=== PATIENT | female | born 1980 | race Hispanic/Latino ===

== ENCOUNTER 2023-08-13 17:42 | Emergency (ER) | payer MEDICAID ==
[~2023-08-13] VITALS: Ht 152.4 cm; Wt 68.0 kg
[2023-08-13] MEDS: IBUPROFEN 600 MG TABLET PO ONE (18:26)
[2023-08-13] MEDS: ONDANSETRON ODT 4MG TAB SL ONE (18:27)
[2023-08-13] MEDS: HYDROCODONE/ACETAMINOPHEN 5/325 MG TAB PO ONE (18:27)
[2023-08-13] MEDS ORDERED: IBUP-2070 PO (20:06)
[2023-08-13] MEDS ORDERED: ACET-2079 PO (20:06)
[2023-08-13 20:13] VITALS: BP 122/72; PULSE 78; RESP 18; O2SAT 98
== END 2023-08-13 20:18 | disposition home or self-care (01) ==
LOC: EDH 17:42
DX: S82.492A Other fracture of shaft of left fibula, initial encounter for closed fracture (principal); S82.292A Other fracture of shaft of left tibia, initial encounter for closed fracture; Z98.890 Other specified postprocedural states; W18.39XA Other fall on same level, initial encounter; Y93.89 Activity, other specified; Y92.89 Other specified places as the place of occurrence of the external cause; Y99.8 Other external cause status
CPT/HCPCS: 29515; 72170; 73551; 73562; 73590; 73610

== ENCOUNTER → 2025-02-08 | Outpatient (CLI) | payer MEDICARE ==
[~2025-02-08] MED LIST: IOHEXOL 350 MG/ML 100ML INFUS..BTL IV ONE
--- NOTE | 2025-02-08 14:45 | HMCIMG ---
INDICATION: Pain localized to other parts of lower abdomen. COMPARISON: None. TECHNIQUE: After obtaining the patient's consent, CT images of the abdomen were obtained with non-ionic intravenous contrast material. Multiplanar image reconstruction was performed. In addition, Multiplanar MIP reconstructions were created and interpreted to optimize visualization of vascular anatomy. Numerous low-radiation dose strategies were employed including AEC (Automatic Exposure Control) and individualized BMI-based low dose scan protocols. The exam was performed on a CT scanner that is compliant with the NEMA XR-29 Smart Dose Standard. DICOM Radiation Dose Structured Reporting capability and Dose Check Standard are also features of this scanner. The study was also obtained with oral contrast. RADIATION DOSE ESTIMATE: CTDIvol (mGy): 37.40 \ DLP (mGy-cm): 1828.80 FINDINGS: ABDOMINAL AORTA: Normal. No aneurysm or dissection. RENAL/VISCERAL: Normal. No significant renal or mesenteric arterial stenosis. ILIAC ARTERIES: Normal. No significant stenosis or aneurysm. OTHER VASCULAR: Negative. LIVER: Normal. No enlargement or significant focal lesion. Portal vein is patent. BILIARY: Normal. No visible dilatation or calcification. The gallbladder is surgically absent. PANCREAS: Normal. No lesion, fluid collection, ductal dilatation, or acute inflammation. SPLEEN: Normal. No enlargement or focal lesion. KIDNEYS: Normal. No mass, obstruction, or nephrolithiasis. ADRENALS: Normal. No mass or enlargement. RETROPERITONEUM: Normal. No mass or adenopathy. BOWEL/MESENTERY: Normal. No visible mass, obstruction, or bowel wall thickening. Also well opacified with oral contrast. ABDOMINAL WALL: Normal. No mass or hernia. BONES: Mild levoscoliosis of the lumbar spine.. LUNG BASES: Normal. No visible pulmonary of pleural disease. OTHER: Uterus is deviating towards the left side. IMPRESSION Acute process seen in CT of the abdomen and pelvis with and without intravenous contrast and with oral contrast.
== END | disposition home or self-care (01) ==
LOC: RAH 11:34
PROVIDERS: ATTEND Internal Medicine Gastroenterology
DX: N85.9 Noninflammatory disorder of uterus, unspecified (principal); R10.30 Lower abdominal pain, unspecified; M41.86 Other forms of scoliosis, lumbar region; Z90.49 Acquired absence of other specified parts of digestive tract
CPT/HCPCS: 74178; Q9967